=== PATIENT | male | born 1955 | race Caucasian/White ===

== ENCOUNTER 2018-01-01 16:37 | Observation (INO) ==
--- NOTE | 2018-01-01 16:49 | Emergency Department Note ---
Disposition Clinical Impression: Cough, COPD exacerbation, UTI (urinary tract infection) Fever Qualifiers: Fever type: unspecified Qualified Code(s): R50.9 - Fever, unspecified Disposition: Admitted As Inpatient Condition: Fair Time of Disposition: 18:51 Fever HPI - General Stated Complaint: Fever Time Seen by Provider: 01/01/18 16:39 Source: patient Mode of arrival: ambulatory Limitations: no limitations Nursing Notes Reviewed: Yes Vital Signs Reviewed: Yes - History of Present Illness HPI Narrative: Patient presents to the ED with the chief complaint of fever. Patient presenting to the ED after being evaluated here yesterday. Was told that he had bronchitis and was sent home. Family states that he has not gotten better in the last 24 hours with antibiotics. States it is had fevers today. They do not have a thermometer, but she states that it has been around 101. Because his ears are not red. He has been coughing intermittently productive. Denying chest pain or shortness of breath. States that he does pull hot and sweaty. No abdominal pain. Some nausea but no vomiting. No dysuria, hematuria , or diarrhea. No pain or swelling in his legs. No history of DVT, PE or malignancy. No history of coronary artery disease. Does have a history of hypertension, hyperlipidemia. - Related Data Home Medications Medication Instructions Recorded Confirmed Atorvastatin Calcium [Lipitor] 80 mg PO HS 01/01/18 01/01/18 Gabapentin [Neurontin] 600 mg PO QID 01/01/18 01/01/18 Glimepiride [Amaryl] 4 mg PO DAILY 01/01/18 01/01/18 Losartan [Cozaar] 25 mg PO DAILY 01/01/18 01/01/18 Metformin HCl [Glucophage] 1,000 mg PO BID 01/01/18 01/01/18 Previous Rx's Medication Instructions Recorded Albuterol Sulfate [Albuterol 2 puff IH Q4HR PRN #1 hfa.aer.ad 12/31/17 Inhaler] Azithromycin [Azithromycin 6-Tab 250 mg PO PER PKG DI #6 tab 12/31/17 Pack] Cyclobenzaprine [Flexeril] 10 mg PO TID #15 tablet 12/31/17 Allergies Allergy/AdvReac Type Severity Reaction Status Date / Time No Known Allergies Allergy Verified 01/01/18 21:49 Review of Systems: As reviewed in the HPI. All other systems reviewed are negative or normal. Fever PMH - Past Medical History Medical history: Reports: diabetes, hyperlipidemia Psychiatric history: Reports: no psych history - Social History Smoking Status: Former smoker Alcohol use: Reports: occasionally, recent Drug use: Reports: none Physical Exam CONSTITUTIONAL: [well appearing in no acute distress] SKIN: [Warm, diaphoretic, and intact without rash] EYES: [extraocular movements are grossly intact, clear conjunctiva] HENT: [Normocephalic, atraumatic, moist mucus membranes] NECK: [no obvious swelling, normal range of motion] PULMONARY: [normal chest rise and fall, no respiratory distress or stridor CARDIOVASCULAR: [regular rate, distal extremities are warm and well perfused] GASTROINSTESTINAL: [nondistended, non-tender] GENITOURINARY: [deferred] NEUROLOGIC: [normal speech, moves all extremities] MUSCULOSKELETAL: [no gross deformities, atraumatic] PSYCHIATRIC: [normal mood and affect] - General Limitations: no limitations General appearance: alert, in no apparent distress Course Course Narrative: Patient presenting with cough and mild shortness of breath. Has been ongoing for a little less than a week. His sats were 88% on room air, and he denies any history of COPD. He does have some coarse breath sounds but no wheezing, rales or rhonchi. Concern for PE. We will add on a d-dimer to his workup. - Reevaluation(s) Reevaluation #1: D-dimer was elevated. CTA of the chest ordered. Patient will be signed out to the oncoming nighttime team with Dr. Moe Vital Signs Temperature 100.1 F H 01/01/18 16:40 Pulse Rate 97 01/01/18 16:40 Respiratory Rate 18 01/01/18 16:40 Blood Pressure 120/58 01/01/18 16:40 O2 Sat by Pulse Oximetry 88 01/01/18 16:40 Temperature 97.8 F 01/02/18 07:23 Pulse Rate 70 01/02/18 07:23 Respiratory Rate 20 01/02/18 07:23 Blood Pressure 116/58 01/02/18 07:23 O2 Sat by Pulse Oximetry 92 01/02/18 07:23 Oxygen Delivery Oxygen Delivery Room Air Fever - Medical Records Medical records reviewed: Yes I reviewed the patient's medical records. - Lab Data Lab results reviewed: Yes I reviewed the patient's lab results. Result diagrams: 01/02/18 04:30 01/02/18 04:30 Lab Results 01/01/18 01/01/18 01/01/18 Range/Units 16:43 16:43 16:45 WBC 10.2 (4.3-11.1) K/mcL RBC 3.79 L (4.19-5.50) M/mcL Hgb 12.1 L (12.9-16.9) g/dL Hct 34.6 L (37.5-50.1) % MCV 91.3 (83.0-100.0) fL MCH 31.9 (28.0-33.3) pg MCHC 35.0 (31.6-35.5) g/dL RDW 13.3 (11.5-14.5) % Plt Count 142 (140-400) K/mcL MPV 10.6 (9.4-12.4) fL Immature Gran % 0.3 (0-4) % Seg Neutrophils % 41.0 % Lymphocytes % 44.6 % Monocytes % 13.2 % Eosinophils % 0.3 % Basophils % 0.6 % Neutrophils # 4.2 (1.6-8.9) K/mcL Lymphocytes # 4.6 (0.6-4.6) K/mcL Monocytes # 1.4 H (0.0-1.3) K/mcL Eosinophils # 0.0 (0.0-0.6) K/mcL Basophils # 0.1 (0.0-0.2) K/mcL Reactive Lymphocytes Present A (Not Present) Platelet Estimate Normal (Normal) D-Dimer 3908 H (0-500) ng/mLFEU Sodium 135 L (136-145) mEq/L Potassium 3.2 L (3.5-5.1) mEq/L Chloride 99 (98-107) mEq/L Carbon Dioxide 28 (23-29) mEq/L BUN 12 (8-23) mg/dL Creatinine 0.76 (0.70-1.30) mg/dL Est GFR ( Amer) > 60 (> 60) Est GFR (Non-Af Amer) > 60 (> 60) BUN/Creatinine Ratio 16 (6-26) Glucose 53 L (70-105) mg/dL POC Glucose (70-99) mg/dL Calculated Osmolality 277 L (280-300) Lactic Acid (0.5-2.2) mmol/L Calcium 9.4 (8.6-10.3) mg/dL Magnesium 1.8 (1.6-2.6) mg/dL Troponin I < 0.03 (< 0.04) ng/mL Urine Color (Yellow) Urine Clarity (Clear) Urine pH (5.0-8.0) pH Units Ur Specific [place] (1.010-1.025) Urine Protein (Neg-Trace) mg/dL Urine Glucose (UA) (Normal) mg/dL Urine Ketones (Negative) mg/dL Urine Blood (Negative) Urine Nitrite (Negative) Urine Bilirubin (Negative) Urine Urobilinogen (Normal) mg/dL Ur Leukocyte Esterase (Negative) Urine Microscopic RBC (0-3) per hpf Urine Microscopic WBC (0-3) per hpf Ur Squamous Epith Cells (None-Few) per lpf Urine Bacteria (None-Few) per hpf Hyaline Casts (None-Few) per lpf Ur Culture Indicated? (NO) 01/01/18 01/01/18 01/01/18 Range/Units 17:03 17:35 20:22 WBC (4.3-11.1) K/mcL RBC (4.19-5.50) M/mcL Hgb (12.9-16.9) g/dL Hct (37.5-50.1) % MCV (83.0-100.0) fL MCH (28.0-33.3) pg MCHC (31.6-35.5) g/dL RDW (11.5-14.5) % Plt Count (140-400) K/mcL MPV (9.4-12.4) fL Immature Gran % (0-4) % Seg Neutrophils % % Lymphocytes % % Monocytes % % Eosinophils % % Basophils % % Neutrophils # (1.6-8.9) K/mcL Lymphocytes # (0.6-4.6) K/mcL Monocytes # (0.0-1.3) K/mcL Eosinophils # (0.0-0.6) K/mcL Basophils # (0.0-0.2) K/mcL Reactive Lymphocytes (Not Present) Platelet Estimate (Normal) D-Dimer (0-500) ng/mLFEU Sodium (136-145) mEq/L Potassium (3.5-5.1) mEq/L Chloride (98-107) mEq/L Carbon Dioxide (23-29) mEq/L BUN (8-23) mg/dL Creatinine (0.70-1.30) mg/dL Est GFR ( Amer) (> 60) Est GFR (Non-Af Amer) (> 60) BUN/Creatinine Ratio (6-26) Glucose (70-105) mg/dL POC Glucose 56 L (70-99) mg/dL Calculated Osmolality (280-300) Lactic Acid 1.4 (0.5-2.2) mmol/L Calcium (8.6-10.3) mg/dL Magnesium (1.6-2.6) mg/dL Troponin I (< 0.04) ng/mL Urine Color [place] A (Yellow) Urine Clarity Cloudy A (Clear) Urine pH 5.5 (5.0-8.0) pH Units Ur Specific [place] > 1.030 H (1.010-1.025) Urine Protein 100 H (Neg-Trace) mg/dL Urine Glucose (UA) Normal (Normal) mg/dL Urine Ketones Trace H (Negative) mg/dL Urine Blood Small H (Negative) Urine Nitrite Negative (Negative) Urine Bilirubin Small H (Negative) Urine Urobilinogen 4.0 H (Normal) mg/dL Ur Leukocyte Esterase Trace H (Negative) Urine Microscopic RBC 0-3 (0-3) per hpf Urine Microscopic WBC 5-15 H (0-3) per hpf Ur Squamous Epith Cells Many H (None-Few) per lpf Urine Bacteria None Seen (None-Few) per hpf Hyaline Casts Few (None-Few) per lpf Ur Culture Indicated? NO. A (NO) 01/01/18 Range/Units 21:17 WBC (4.3-11.1) K/mcL RBC (4.19-5.50) M/mcL Hgb (12.9-16.9) g/dL Hct (37.5-50.1) % MCV (83.0-100.0) fL MCH (28.0-33.3) pg MCHC (31.6-35.5) g/dL RDW (11.5-14.5) % Plt Count (140-400) K/mcL MPV (9.4-12.4) fL Immature Gran % (0-4) % Seg Neutrophils % % Lymphocytes % % Monocytes % % Eosinophils % % Basophils % % Neutrophils # (1.6-8.9) K/mcL Lymphocytes # (0.6-4.6) K/mcL Monocytes # (0.0-1.3) K/mcL Eosinophils # (0.0-0.6) K/mcL Basophils # (0.0-0.2) K/mcL Reactive Lymphocytes (Not Present) Platelet Estimate (Normal) D-Dimer (0-500) ng/mLFEU Sodium (136-145) mEq/L Potassium (3.5-5.1) mEq/L Chloride (98-107) mEq/L Carbon Dioxide (23-29) mEq/L BUN (8-23) mg/dL Creatinine (0.70-1.30) mg/dL Est GFR ( Amer) (> 60) Est GFR (Non-Af Amer) (> 60) BUN/Creatinine Ratio (6-26) Glucose (70-105) mg/dL POC Glucose 101 H (70-99) mg/dL Calculated Osmolality (280-300) Lactic Acid (0.5-2.2) mmol/L Calcium (8.6-10.3) mg/dL Magnesium (1.6-2.6) mg/dL Troponin I (< 0.04) ng/mL Urine Color (Yellow) Urine Clarity (Clear) Urine pH (5.0-8.0) pH Units Ur Specific [place] (1.010-1.025) Urine Protein (Neg-Trace) mg/dL Urine Glucose (UA) (Normal) mg/dL Urine Ketones (Negative) mg/dL Urine Blood (Negative) Urine Nitrite (Negative) Urine Bilirubin (Negative) Urine Urobilinogen (Normal) mg/dL Ur Leukocyte Esterase (Negative) Urine Microscopic RBC (0-3) per hpf Urine Microscopic WBC (0-3) per hpf Ur Squamous Epith Cells (None-Few) per lpf Urine Bacteria (None-Few) per hpf Hyaline Casts (None-Few) per lpf Ur Culture Indicated? (NO) - Radiology Data Radiology results reviewed: Yes I reviewed the patient's radiology results. - EKG Data EKG attestation: Yes I reviewed and interpreted this EKG. EKG results narrative: Sinus rhythm, rate 93,. 135, QRS 150, QTC 429, left bundle branch block, no previous available Attestation Statement - Attestation Attestation: I examined this patient and my medical decision-making was reviewed with the Resident Physician. I agree with the documented findings, disposition and treatment plan as described except to the extent set forth below.
[2018-01-01] MEDS: 0.9 % Sodium Chloride 1,000 ML IVC SCH ×3 (17:04→23:07)
[2018-01-01 17:16] LABS: Basophils # 0.1 K/mcL (0.0-0.2); Basophils % 0.6 %; Eosinophils % 0.3 %; Hematocrit 34.6 % (37.5-50.1); Hemoglobin 12.1 g/dL (12.9-16.9); Immature Granulocytes % 0.3 % (0-4); Lymphocytes # 4.6 K/mcL (0.6-4.6); Lymphocytes % 44.6 %; Mean Corpuscular Hemoglobin 31.9 pg (28.0-33.3); Mean Corpuscular Volume 91.3 fL (83.0-100.0); Mean Platelet Volume 10.6 fL (9.4-12.4); Monocytes # 1.4 K/mcL (0.0-1.3); Monocytes % 13.2 %; Neutrophils # 4.2 K/mcL (1.6-8.9); Platelet Count 142 K/mcL (140-400); Red Blood Count 3.79 M/mcL (4.19-5.50); Red Cell Distribution Width 13.3 % (11.5-14.5)
[2018-01-01 17:35] LABS: Platelet Estimate Normal (Normal); Reactive Lymphocytes Present (Not Present)
[2018-01-01 17:36] LABS: BUN/Creatinine Ratio 16 (6-26); Blood Urea Nitrogen 12 mg/dL (8-23); Calcium 9.4 mg/dL (8.6-10.3); Carbon Dioxide 28 mEq/L (23-29); Chloride 99 mEq/L (98-107); Glucose 53 mg/dL (70-105); Magnesium 1.8 mg/dL (1.6-2.6); Osmolality,Calculated 277 (280-300); Potassium 3.2 mEq/L (3.5-5.1); Sodium 135 mEq/L (136-145); Troponin I < 0.03 ng/mL (< 0.04); eGFR For African Americans > 60 (> 60); eGFR For Non-African Americans > 60 (> 60)
[2018-01-01 17:47] LABS: Bilirubin,Urine Small (Negative); Blood,Urine Small (Negative); Clarity,Urine Cloudy (Clear); Color,Urine Orange (Yellow); Glucose,Urine (UA) Normal (Normal); Ketones,Urine Trace mg/dL (Negative); Leukocyte Esterase,Urine Trace (Negative); Nitrite,Urine Negative (Negative); PH,Urine 5.5 pH Units (5.0-8.0); Protein,Urine 100 mg/dL (Neg-Trace); Specific Gravity,Urine > 1.030 (1.010-1.025)
[2018-01-01 17:49] LABS: Bacteria,Urine None Seen per hpf (None-Few); RBC,Urine 0-3 per hpf (0-3); Squamous Epithelial Cell,Urine Many per lpf (None-Few)
[2018-01-01 18:01] LABS: Hyaline Casts,Urine Few per lpf (None-Few)
[2018-01-01] MEDS ORDERED: Isovue-370 500 ML INFUS..BTL IV ONE (18:47)
[2018-01-01] MEDS ORDERED: Ipratropium/Albuterol Neb 3 ML IH ONE (18:51)
--- NOTE | 2018-01-01 18:51 | Emergency Department Note ---
Disposition Clinical Impression: Cough, COPD exacerbation Fever Qualifiers: Fever type: unspecified Qualified Code(s): R50.9 - Fever, unspecified UTI (urinary tract infection) Qualifiers: Urinary tract infection type: site unspecified Hematuria presence: without hematuria Qualified Code(s): N39.0 - Urinary tract infection, site not specified Disposition: Admitted As Inpatient Condition: Good General Adult HPI - General Chief complaint: ED Fever Stated complaint: Fever Time Seen by Provider: 01/01/18 16:39 Source: patient Mode of arrival: ambulatory Limitations: no limitations - History of Present Illness Pain Scale: 8 - Related Data Home Medications Medication Instructions Recorded Confirmed Atorvastatin Calcium [Lipitor] 80 mg PO HS 01/01/18 01/01/18 Gabapentin [Neurontin] 1,200 mg PO TID 01/01/18 01/02/18 Glimepiride [Amaryl] 4 mg PO DAILY 01/01/18 01/01/18 Losartan [Cozaar] 25 mg PO DAILY 01/01/18 01/01/18 Metformin HCl [Glucophage] 1,000 mg PO BID 01/01/18 01/01/18 Previous Rx's Medication Instructions Recorded Albuterol Sulfate [Albuterol 2 puff IH Q4HR PRN #1 hfa.aer.ad 01/02/18 Inhaler] Benzocaine/Menthol Janeth [Cepacol 1 each MM Q2H PRN #30 lozenge 01/02/18 Sore Throat Lozenge] Cyclobenzaprine [Flexeril] 10 mg PO TID #15 tablet 01/02/18 Doxycycline 100 mg PO BID 10 Days #20 capsule 01/02/18 GuaiFENesin/Dextromethorphan 10 ml PO Q6HR PRN #500 ml 01/02/18 [Robitussin/Dm] Allergies Allergy/AdvReac Type Severity Reaction Status Date / Time No Known Allergies Allergy Verified 01/01/18 21:49 Past Medical History - Past Medical History Medical history: Reports: diabetes, hyperlipidemia Psychiatric history: Reports: no psych history - Social History Smoking Status: Former smoker Smokeless Tobacco Status: No Alcohol use: Reports: occasionally, recent Drug use: Reports: none Physical Exam - General Limitations: no limitations General appearance: alert, in no apparent distress Course Vital Signs Temperature 100.1 F H 01/01/18 16:40 Pulse Rate 97 01/01/18 16:40 Respiratory Rate 18 01/01/18 16:40 Blood Pressure 120/58 01/01/18 16:40 O2 Sat by Pulse Oximetry 88 01/01/18 16:40 Temperature 97.8 F 01/02/18 07:23 Pulse Rate 70 01/02/18 07:23 Respiratory Rate 20 01/02/18 07:23 Blood Pressure 116/58 01/02/18 07:23 O2 Sat by Pulse Oximetry 92 01/02/18 07:23 Oxygen Delivery Oxygen Delivery Room Air Medical Decision Making - Lab Data Result diagrams: 01/02/18 04:30 01/02/18 04:30 Lab Results 01/01/18 01/01/18 01/01/18 Range/Units 16:43 16:43 16:45 WBC 10.2 (4.3-11.1) K/mcL RBC 3.79 L (4.19-5.50) M/mcL Hgb 12.1 L (12.9-16.9) g/dL Hct 34.6 L (37.5-50.1) % MCV 91.3 (83.0-100.0) fL MCH 31.9 (28.0-33.3) pg MCHC 35.0 (31.6-35.5) g/dL RDW 13.3 (11.5-14.5) % Plt Count 142 (140-400) K/mcL MPV 10.6 (9.4-12.4) fL Immature Gran % 0.3 (0-4) % Seg Neutrophils % 41.0 % Lymphocytes % 44.6 % Monocytes % 13.2 % Eosinophils % 0.3 % Basophils % 0.6 % Neutrophils # 4.2 (1.6-8.9) K/mcL Lymphocytes # 4.6 (0.6-4.6) K/mcL Monocytes # 1.4 H (0.0-1.3) K/mcL Eosinophils # 0.0 (0.0-0.6) K/mcL Basophils # 0.1 (0.0-0.2) K/mcL Reactive Lymphocytes Present A (Not Present) Platelet Estimate Normal (Normal) D-Dimer 3908 H (0-500) ng/mLFEU Sodium 135 L (136-145) mEq/L Potassium 3.2 L (3.5-5.1) mEq/L Chloride 99 (98-107) mEq/L Carbon Dioxide 28 (23-29) mEq/L BUN 12 (8-23) mg/dL Creatinine 0.76 (0.70-1.30) mg/dL Est GFR ( Amer) > 60 (> 60) Est GFR (Non-Af Amer) > 60 (> 60) BUN/Creatinine Ratio 16 (6-26) Glucose 53 L (70-105) mg/dL POC Glucose (70-99) mg/dL Calculated Osmolality 277 L (280-300) Lactic Acid (0.5-2.2) mmol/L Calcium 9.4 (8.6-10.3) mg/dL Magnesium 1.8 (1.6-2.6) mg/dL Troponin I < 0.03 (< 0.04) ng/mL Urine Color (Yellow) Urine Clarity (Clear) Urine pH (5.0-8.0) pH Units Ur Specific [place] (1.010-1.025) Urine Protein (Neg-Trace) mg/dL Urine Glucose (UA) (Normal) mg/dL Urine Ketones (Negative) mg/dL Urine Blood (Negative) Urine Nitrite (Negative) Urine Bilirubin (Negative) Urine Urobilinogen (Normal) mg/dL Ur Leukocyte Esterase (Negative) Urine Microscopic RBC (0-3) per hpf Urine Microscopic WBC (0-3) per hpf Ur Squamous Epith Cells (None-Few) per lpf Urine Bacteria (None-Few) per hpf Hyaline Casts (None-Few) per lpf Ur Culture Indicated? (NO) 01/01/18 01/01/18 01/01/18 Range/Units 17:03 17:35 20:22 WBC (4.3-11.1) K/mcL RBC (4.19-5.50) M/mcL Hgb (12.9-16.9) g/dL Hct (37.5-50.1) % MCV (83.0-100.0) fL MCH (28.0-33.3) pg MCHC (31.6-35.5) g/dL RDW (11.5-14.5) % Plt Count (140-400) K/mcL MPV (9.4-12.4) fL Immature Gran % (0-4) % Seg Neutrophils % % Lymphocytes % % Monocytes % % Eosinophils % % Basophils % % Neutrophils # (1.6-8.9) K/mcL Lymphocytes # (0.6-4.6) K/mcL Monocytes # (0.0-1.3) K/mcL Eosinophils # (0.0-0.6) K/mcL Basophils # (0.0-0.2) K/mcL Reactive Lymphocytes (Not Present) Platelet Estimate (Normal) D-Dimer (0-500) ng/mLFEU Sodium (136-145) mEq/L Potassium (3.5-5.1) mEq/L Chloride (98-107) mEq/L Carbon Dioxide (23-29) mEq/L BUN (8-23) mg/dL Creatinine (0.70-1.30) mg/dL Est GFR ( Amer) (> 60) Est GFR (Non-Af Amer) (> 60) BUN/Creatinine Ratio (6-26) Glucose (70-105) mg/dL POC Glucose 56 L (70-99) mg/dL Calculated Osmolality (280-300) Lactic Acid 1.4 (0.5-2.2) mmol/L Calcium (8.6-10.3) mg/dL Magnesium (1.6-2.6) mg/dL Troponin I (< 0.04) ng/mL Urine Color [place] A (Yellow) Urine Clarity Cloudy A (Clear) Urine pH 5.5 (5.0-8.0) pH Units Ur Specific [place] > 1.030 H (1.010-1.025) Urine Protein 100 H (Neg-Trace) mg/dL Urine Glucose (UA) Normal (Normal) mg/dL Urine Ketones Trace H (Negative) mg/dL Urine Blood Small H (Negative) Urine Nitrite Negative (Negative) Urine Bilirubin Small H (Negative) Urine Urobilinogen 4.0 H (Normal) mg/dL Ur Leukocyte Esterase Trace H (Negative) Urine Microscopic RBC 0-3 (0-3) per hpf Urine Microscopic WBC 5-15 H (0-3) per hpf Ur Squamous Epith Cells Many H (None-Few) per lpf Urine Bacteria None Seen (None-Few) per hpf Hyaline Casts Few (None-Few) per lpf Ur Culture Indicated? NO. A (NO) 01/01/18 Range/Units 21:17 WBC (4.3-11.1) K/mcL RBC (4.19-5.50) M/mcL Hgb (12.9-16.9) g/dL Hct (37.5-50.1) % MCV (83.0-100.0) fL MCH (28.0-33.3) pg MCHC (31.6-35.5) g/dL RDW (11.5-14.5) % Plt Count (140-400) K/mcL MPV (9.4-12.4) fL Immature Gran % (0-4) % Seg Neutrophils % % Lymphocytes % % Monocytes % % Eosinophils % % Basophils % % Neutrophils # (1.6-8.9) K/mcL Lymphocytes # (0.6-4.6) K/mcL Monocytes # (0.0-1.3) K/mcL Eosinophils # (0.0-0.6) K/mcL Basophils # (0.0-0.2) K/mcL Reactive Lymphocytes (Not Present) Platelet Estimate (Normal) D-Dimer (0-500) ng/mLFEU Sodium (136-145) mEq/L Potassium (3.5-5.1) mEq/L Chloride (98-107) mEq/L Carbon Dioxide (23-29) mEq/L BUN (8-23) mg/dL Creatinine (0.70-1.30) mg/dL Est GFR ( Amer) (> 60) Est GFR (Non-Af Amer) (> 60) BUN/Creatinine Ratio (6-26) Glucose (70-105) mg/dL POC Glucose 101 H (70-99) mg/dL Calculated Osmolality (280-300) Lactic Acid (0.5-2.2) mmol/L Calcium (8.6-10.3) mg/dL Magnesium (1.6-2.6) mg/dL Troponin I (< 0.04) ng/mL Urine Color (Yellow) Urine Clarity (Clear) Urine pH (5.0-8.0) pH Units Ur Specific [place] (1.010-1.025) Urine Protein (Neg-Trace) mg/dL Urine Glucose (UA) (Normal) mg/dL Urine Ketones (Negative) mg/dL Urine Blood (Negative) Urine Nitrite (Negative) Urine Bilirubin (Negative) Urine Urobilinogen (Normal) mg/dL Ur Leukocyte Esterase (Negative) Urine Microscopic RBC (0-3) per hpf Urine Microscopic WBC (0-3) per hpf Ur Squamous Epith Cells (None-Few) per lpf Urine Bacteria (None-Few) per hpf Hyaline Casts (None-Few) per lpf Ur Culture Indicated? (NO) Attestation Statement - Attestation Attestation: I examined this patient and my medical decision-making was reviewed with the Resident Physician. I agree with the documented findings, disposition and treatment plan as described except to the extent set forth below. 62-year-old male presents ED because of cough, dyspnea and fever. He has had symptoms for the past several days associated with subjective fever. No specific measurements were taken. He has had increasing dyspnea. He was seen here in the emergency department and diagnosed with bronchitis. He returns today because he is not feeling any better. He has had episodes of diaphoresis. Cough is nonproductive but he does have post-tussive emesis. No chest pain but does have pain in his upper scapula. Denies abdominal pain or diarrhea. No joint pain. No leg edema. No recent long distance travel or periods of prolonged immobilization. Patient is little bit pale and diaphoretic. Oropharynx clear mucous membranes membranes moist. Neck supple. No JVD. Chest with scattered respiratory rhonchi bilaterally. Mild expiratory wheezes. Abdomen soft, non-distended and non-tender. Extremities warm and dry. No calf edema. No calf tenderness. Chest x-ray negative for any acute process. He was hypoxic with a rash oxygen saturation of 80% and a d-dimer of 3800. He will receive a DuoNeb treatment and will be sent for CT of his chest to rule out PE. Will be turned over to Dr. Urias pending results of the CT.
[2018-01-01] MEDS ORDERED: 0.9 % Sodium Chloride 1,000 ML ONE (19:26)
--- NOTE | 2018-01-01 19:27 | Emergency Department Note ---
Disposition Clinical Impression: Cough, COPD exacerbation Fever Qualifiers: Fever type: unspecified Qualified Code(s): R50.9 - Fever, unspecified UTI (urinary tract infection) Qualifiers: Urinary tract infection type: site unspecified Hematuria presence: without hematuria Qualified Code(s): N39.0 - Urinary tract infection, site not specified Disposition: Admitted As Inpatient Condition: Fair General Adult HPI - General Chief complaint: ED Fever Stated complaint: Fever Time Seen by Provider: 01/01/18 16:39 Source: patient Mode of arrival: ambulatory Limitations: no limitations - History of Present Illness Pain Scale: 8 - Related Data Home Medications Medication Instructions Recorded Confirmed Atorvastatin Calcium [Lipitor] 80 mg PO HS 01/01/18 01/01/18 Gabapentin [Neurontin] 600 mg PO QID 01/01/18 01/01/18 Glimepiride [Amaryl] 4 mg PO DAILY 01/01/18 01/01/18 Losartan [Cozaar] 25 mg PO DAILY 01/01/18 01/01/18 Metformin HCl [Glucophage] 1,000 mg PO BID 01/01/18 01/01/18 Previous Rx's Medication Instructions Recorded Albuterol Sulfate [Albuterol 2 puff IH Q4HR PRN #1 hfa.aer.ad 12/31/17 Inhaler] Azithromycin [Azithromycin 6-Tab 250 mg PO PER PKG DI #6 tab 12/31/17 Pack] Cyclobenzaprine [Flexeril] 10 mg PO TID #15 tablet 12/31/17 Allergies Allergy/AdvReac Type Severity Reaction Status Date / Time No Known Allergies Allergy Verified 01/01/18 21:49 Past Medical History - Past Medical History Medical history: Reports: diabetes, hyperlipidemia Psychiatric history: Reports: no psych history - Social History Smoking Status: Former smoker Smokeless Tobacco Status: No Alcohol use: Reports: occasionally, recent Drug use: Reports: none Physical Exam - General Limitations: no limitations General appearance: alert, in no apparent distress Course Course Narrative: Patient taken over at sign out from Dr. Gaona. Patient seen and evaluated bedside. Please see his history and physical for further details. Shortness of breath evaluated last week and did not improve with antibiotics. Resents hypoxic at 88%. D-dimer elevated. CTA pending. - Reevaluation(s) Reevaluation #1: Patient states he has had some mild improvement in the department. Treatment did improve some of his symptoms. CTA and chest x-ray are negative. The patient was recently seen for URI type symptoms with sore throat. Strep swab and influenza were negative. Patient does have some tonsillar exudates bilaterally. The patient wheezing and shortness of breath or right likely related to underlying reactive airway disease. Patient's urine is concerning for possible UTI which may be complicating's overlying viral syndrome. Levaquin has been given. Awaiting urine culture. Blood cultures have also been obtained. Patient's potassium has been replaced. Patient will undergo further admission for observation and pending cultures. - Consultations Consultation #1: Discussed with hospitalist. Patient accepted for admission. Vital Signs Temperature 100.1 F H 01/01/18 16:40 Pulse Rate 97 01/01/18 16:40 Respiratory Rate 18 01/01/18 16:40 Blood Pressure 120/58 01/01/18 16:40 O2 Sat by Pulse Oximetry 88 01/01/18 16:40 Temperature 97.9 F 01/02/18 04:08 Pulse Rate 75 01/02/18 04:08 Respiratory Rate 16 01/02/18 04:08 Blood Pressure 127/64 01/02/18 04:08 O2 Sat by Pulse Oximetry 96 01/02/18 04:08 Oxygen Delivery Oxygen Delivery Room Air Medical Decision Making - Lab Data Result diagrams: 01/01/18 16:43 01/01/18 16:43 Lab Results 01/01/18 01/01/18 01/01/18 Range/Units 16:43 16:43 16:45 WBC 10.2 (4.3-11.1) K/mcL RBC 3.79 L (4.19-5.50) M/mcL Hgb 12.1 L (12.9-16.9) g/dL Hct 34.6 L (37.5-50.1) % MCV 91.3 (83.0-100.0) fL MCH 31.9 (28.0-33.3) pg MCHC 35.0 (31.6-35.5) g/dL RDW 13.3 (11.5-14.5) % Plt Count 142 (140-400) K/mcL MPV 10.6 (9.4-12.4) fL Immature Gran % 0.3 (0-4) % Seg Neutrophils % 41.0 % Lymphocytes % 44.6 % Monocytes % 13.2 % Eosinophils % 0.3 % Basophils % 0.6 % Neutrophils # 4.2 (1.6-8.9) K/mcL Lymphocytes # 4.6 (0.6-4.6) K/mcL Monocytes # 1.4 H (0.0-1.3) K/mcL Eosinophils # 0.0 (0.0-0.6) K/mcL Basophils # 0.1 (0.0-0.2) K/mcL Reactive Lymphocytes Present A (Not Present) Platelet Estimate Normal (Normal) D-Dimer 3908 H (0-500) ng/mLFEU Sodium 135 L (136-145) mEq/L Potassium 3.2 L (3.5-5.1) mEq/L Chloride 99 (98-107) mEq/L Carbon Dioxide 28 (23-29) mEq/L BUN 12 (8-23) mg/dL Creatinine 0.76 (0.70-1.30) mg/dL Est GFR ( Amer) > 60 (> 60) Est GFR (Non-Af Amer) > 60 (> 60) BUN/Creatinine Ratio 16 (6-26) Glucose 53 L (70-105) mg/dL POC Glucose (70-99) mg/dL Calculated Osmolality 277 L (280-300) Lactic Acid (0.5-2.2) mmol/L Calcium 9.4 (8.6-10.3) mg/dL Magnesium 1.8 (1.6-2.6) mg/dL Troponin I < 0.03 (< 0.04) ng/mL Urine Color (Yellow) Urine Clarity (Clear) Urine pH (5.0-8.0) pH Units Ur Specific [place] (1.010-1.025) Urine Protein (Neg-Trace) mg/dL Urine Glucose (UA) (Normal) mg/dL Urine Ketones (Negative) mg/dL Urine Blood (Negative) Urine Nitrite (Negative) Urine Bilirubin (Negative) Urine Urobilinogen (Normal) mg/dL Ur Leukocyte Esterase (Negative) Urine Microscopic RBC (0-3) per hpf Urine Microscopic WBC (0-3) per hpf Ur Squamous Epith Cells (None-Few) per lpf Urine Bacteria (None-Few) per hpf Hyaline Casts (None-Few) per lpf Ur Culture Indicated? (NO) 01/01/18 01/01/18 01/01/18 Range/Units 17:03 17:35 20:22 WBC (4.3-11.1) K/mcL RBC (4.19-5.50) M/mcL Hgb (12.9-16.9) g/dL Hct (37.5-50.1) % MCV (83.0-100.0) fL MCH (28.0-33.3) pg MCHC (31.6-35.5) g/dL RDW (11.5-14.5) % Plt Count (140-400) K/mcL MPV (9.4-12.4) fL Immature Gran % (0-4) % Seg Neutrophils % % Lymphocytes % % Monocytes % % Eosinophils % % Basophils % % Neutrophils # (1.6-8.9) K/mcL Lymphocytes # (0.6-4.6) K/mcL Monocytes # (0.0-1.3) K/mcL Eosinophils # (0.0-0.6) K/mcL Basophils # (0.0-0.2) K/mcL Reactive Lymphocytes (Not Present) Platelet Estimate (Normal) D-Dimer (0-500) ng/mLFEU Sodium (136-145) mEq/L Potassium (3.5-5.1) mEq/L Chloride (98-107) mEq/L Carbon Dioxide (23-29) mEq/L BUN (8-23) mg/dL Creatinine (0.70-1.30) mg/dL Est GFR ( Amer) (> 60) Est GFR (Non-Af Amer) (> 60) BUN/Creatinine Ratio (6-26) Glucose (70-105) mg/dL POC Glucose 56 L (70-99) mg/dL Calculated Osmolality (280-300) Lactic Acid 1.4 (0.5-2.2) mmol/L Calcium (8.6-10.3) mg/dL Magnesium (1.6-2.6) mg/dL Troponin I (< 0.04) ng/mL Urine Color [place] A (Yellow) Urine Clarity Cloudy A (Clear) Urine pH 5.5 (5.0-8.0) pH Units Ur Specific [place] > 1.030 H (1.010-1.025) Urine Protein 100 H (Neg-Trace) mg/dL Urine Glucose (UA) Normal (Normal) mg/dL Urine Ketones Trace H (Negative) mg/dL Urine Blood Small H (Negative) Urine Nitrite Negative (Negative) Urine Bilirubin Small H (Negative) Urine Urobilinogen 4.0 H (Normal) mg/dL Ur Leukocyte Esterase Trace H (Negative) Urine Microscopic RBC 0-3 (0-3) per hpf Urine Microscopic WBC 5-15 H (0-3) per hpf Ur Squamous Epith Cells Many H (None-Few) per lpf Urine Bacteria None Seen (None-Few) per hpf Hyaline Casts Few (None-Few) per lpf Ur Culture Indicated? NO. A (NO) 01/01/18 Range/Units 21:17 WBC (4.3-11.1) K/mcL RBC (4.19-5.50) M/mcL Hgb (12.9-16.9) g/dL Hct (37.5-50.1) % MCV (83.0-100.0) fL MCH (28.0-33.3) pg MCHC (31.6-35.5) g/dL RDW (11.5-14.5) % Plt Count (140-400) K/mcL MPV (9.4-12.4) fL Immature Gran % (0-4) % Seg Neutrophils % % Lymphocytes % % Monocytes % % Eosinophils % % Basophils % % Neutrophils # (1.6-8.9) K/mcL Lymphocytes # (0.6-4.6) K/mcL Monocytes # (0.0-1.3) K/mcL Eosinophils # (0.0-0.6) K/mcL Basophils # (0.0-0.2) K/mcL Reactive Lymphocytes (Not Present) Platelet Estimate (Normal) D-Dimer (0-500) ng/mLFEU Sodium (136-145) mEq/L Potassium (3.5-5.1) mEq/L Chloride (98-107) mEq/L Carbon Dioxide (23-29) mEq/L BUN (8-23) mg/dL Creatinine (0.70-1.30) mg/dL Est GFR ( Amer) (> 60) Est GFR (Non-Af Amer) (> 60) BUN/Creatinine Ratio (6-26) Glucose (70-105) mg/dL POC Glucose 101 H (70-99) mg/dL Calculated Osmolality (280-300) Lactic Acid (0.5-2.2) mmol/L Calcium (8.6-10.3) mg/dL Magnesium (1.6-2.6) mg/dL Troponin I (< 0.04) ng/mL Urine Color (Yellow) Urine Clarity (Clear) Urine pH (5.0-8.0) pH Units Ur Specific [place] (1.010-1.025) Urine Protein (Neg-Trace) mg/dL Urine Glucose (UA) (Normal) mg/dL Urine Ketones (Negative) mg/dL Urine Blood (Negative) Urine Nitrite (Negative) Urine Bilirubin (Negative) Urine Urobilinogen (Normal) mg/dL Ur Leukocyte Esterase (Negative) Urine Microscopic RBC (0-3) per hpf Urine Microscopic WBC (0-3) per hpf Ur Squamous Epith Cells (None-Few) per lpf Urine Bacteria (None-Few) per hpf Hyaline Casts (None-Few) per lpf Ur Culture Indicated? (NO) Attestation Statement - Attestation Attestation: I examined this patient and my medical decision-making was reviewed with the Resident Physician. I agree with the documented findings, disposition and treatment plan as described except to the extent set forth below. Nonspecific fever also some associated dyspnea. We will start Levaquin and obtain blood cultures. Plan to admit to the hospital for further management as patient has failed outpatient trial with Z-Dallin and continues to have fever associated with hypoglycemia.
[2018-01-01] MEDS ORDERED: Lidocaine Viscous Oral Soln 15 ML SOLUTION MM ONE (20:31)
[2018-01-01] MEDS ORDERED: methylPREDNISolone 125 MG/2 ML VIAL IVP ONE (21:29)
[2018-01-01] MEDS ORDERED: Levofloxacin 750 MG/150 ML 750 MG/150 ML BAG IVPB ONE (21:29)
[2018-01-01] MEDS ORDERED: Naloxone 0.4 MG/ML INJ IVP PRN (22:16)
[2018-01-01] MEDS ORDERED: Ipratropium/Albuterol Neb 3 ML IH PRN (22:26)
[2018-01-01] MEDS ORDERED: Acetaminophen 325 MG TABLET PO PRN (22:28)
[2018-01-01] MEDS ORDERED: Dextrose Gel 15 GM/37.5 ML TUBE PO PRN ×2 (23:05)
[2018-01-01] MEDS ORDERED: D5% in Water 1,000 ML IVC PRN (23:05)
[2018-01-01] MEDS ORDERED: *HR* Dextrose 50 % in Water (Syg) 50 ML SYRINGE IVP PRN (23:05)
--- NOTE | 2018-01-01 23:13 | Internal Med History&Physical ---
Date of Encounter: 01/01/18 Time of Encounter: 21:00 Internal Medicine - H&P: HPI Chief complaint: Fever Admitted From: Home Plans for Post Hospital Care: Home History of present illness: Mr. Lopez is a 62 year old male presented to ER for fever since 4 days ago. Past medical history is significant for diabetes. Patient said he started to have fever since last Sunday. Patient has no thermometer at home, so does not know exactly temperature. Patient has mild headache, sore throat, productive cough with clear sputum. Patient has nausea and vomited once today, no blood in the vomiting. Patient denies chest pain, shortness of breath, abdominal pain, urination symptoms. In the emergency room , patient was found decreased saturation and need oxygen. Patient does not use oxygen at home and denies history of COPD. Per ER physician, patient has trace wheezes but when I see patient in emergency room, he has no wheezes at all. Patient was checked flu test and rapid strep test on 10/31/17, both are negative. Patient was admitted for hypoxia. Per patient's , patient was found 16 ticks on body about one month ago. All ticks have been removed by his . And all the bite site is clean now. Patient was found elevated d-dimer ER. CTA is negative for PE. Past Med Surg Social Fam HX - Past Medical History Medical history: diabetes, hyperlipidemia Psychiatric history: no psych history - Social History Smoking Status: Former smoker Smokeless Tobacco Status: No Alcohol use: occasionally, recent Drug use: none - Family History Mother History Unknown: Yes Internal Medicine - H&P: Meds Albuterol Sulfate [Albuterol Inhaler] 2 puff IH Q4HR PRN #1 hfa.aer.ad 12/31/17 [Rx] Azithromycin [Azithromycin 6-Tab Pack] 250 mg PO PER PKG DI #6 tab 12/31/17 [Rx] Cyclobenzaprine [Flexeril] 10 mg PO TID #15 tablet 12/31/17 [Rx] Atorvastatin Calcium [Lipitor] 80 mg PO HS 01/01/18 [History] Gabapentin [Neurontin] 600 mg PO QID 01/01/18 [History] Glimepiride [Amaryl] 4 mg PO DAILY 01/01/18 [History] Losartan [Cozaar] 25 mg PO DAILY 01/01/18 [History] Metformin HCl [Glucophage] 1,000 mg PO BID 01/01/18 [History] 3 Allergy/AdvReac Type Severity Reaction Status Date / Time No Known Allergies Allergy Verified 01/01/18 21:49 All Systems PM: A 10-system review of systems was performed and is negative for pertinent findings except as documented above in the HPI. - Constitutional Vitals: Temp Pulse Resp BP Pulse Ox 98.1 F 82 18 123/70 92 01/01/18 22:49 01/01/18 22:49 01/01/18 22:49 01/01/18 22:49 01/01/18 22:49 General appearance: Present: mild distress, A&O X 3, answers questions appropriately - Head Head exam: Present: atraumatic, normocephalic - Eye Eye exam: Present: PERRL, conjuntiva pink, sclera anicteric Pupils: Present: PERRL - Neck Neck exam general surgery: Present: supple, trachea midline. Absent: lymphadenopathy Additional comments: Bilateral tonsil enlargement, left > right, with pus-like exudate on left tonsil. - Respiratory Respiratory exam: Present: CTAB. Absent: accessory muscle use, rales, rhonchi, wheezes Additional comments: Coarse breath sound bilaterally - Cardiovascular Cardiovascular exam: Present: RRR, +S1, +S2. Absent: diastolic murmur, gallop, rubs, systolic murmur - GI/Abdominal GI/Abdominal exam: Present: normal bowel sounds, soft, no peritoneal signs. Absent: distended, tenderness - Extremities Exam Extremities exam: Present: warm, radial pulses palpable and symmetrical. Absent : calf tenderness, cyanotic, pedal edema - Neurological Exam Neurological exam: Present: CN II-XII intact, oriented X3, no focal deficits. Absent: pronater drift, facial droop, speech deficit - Skin Skin exam: Present: dry, intact Internal Med - H&P Results - Labs CBC & Chem 7: 01/01/18 16:43 01/01/18 16:43 - Assessment and plan (1) URI (upper respiratory infection) Current Visit: Yes Status: Acute Assessment and plan: Patient has symptoms of URI with fever. Flu and rapid strep test negative. Most likely viral infection. - Continue supportive and symptomatic treatment. - Check respiratory viral panel - Patient was started by mouth azithromycin as outpatient, will continue. Qualifiers: URI type: unspecified viral URI Qualified Code(s): J06.9 - Acute upper respiratory infection, unspecified (2) Acute pharyngitis Current Visit: Yes Status: Acute Assessment and plan: Etiology is undetermined. Rapid strep negative. Probably viral infection. Patient has no signs of tonsil cellulitis/abscess. Airway is patent. - Continue symptomatic treatment - Repeat rapid strep. - Continue by mouth azithromycin Qualifiers: Pharyngitis/tonsillitis etiology: unspecified etiology Qualified Code(s): J02.9 - Acute pharyngitis, unspecified (3) Elevated d-dimer Current Visit: Yes Status: Acute Assessment and plan: CTA shows no PE. Will check bilateral Doppler venous to rule out DVT (4) Abnormal EKG Current Visit: Yes Status: Acute Assessment and plan: EKG shows LBBB, no previous EKG available to compare. Patient denies chest pain. - Continuous cardiac monitoring - Track 3 sets of troponin - Repeat EKG in a.m. (5) DVT prophylaxis Current Visit: Yes Status: Acute Assessment and plan: Heparin subcutaneously (6) Fever Current Visit: Yes Status: Acute Assessment and plan: Etiology is undetermined. Probably due to viral infection. Will continue symptomatic treatment. Follow-up urine and blood culture Qualifiers: Fever type: unspecified Qualified Code(s): R50.9 - Fever, unspecified (7) Bronchitis Current Visit: No Status: Acute Assessment and plan: Management as above. 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 Ticks was removed. No indication for prophylactic treatment at this point. Qualifiers: Encounter type: initial encounter Qualified Code(s): W57.XXXA - Bitten or stung by nonvenomous insect and other nonvenomous arthropods, initial encounter - Time Spent With Patient Total time spent is greater than 50% in coordination of care (as documented) at patient's floor/unit and/or counseling patient: 40 minutes Greater than 35 minutes
[2018-01-02] MEDS: Gabapentin 400 MG CAPSULE PO SCH ×2 (03:11→09:18)
[2018-01-02 04:41] LABS: Mean Platelet Volume 10.8 fL (9.4-12.4)
[2018-01-02 04:44] LABS: Basophils % 0.5 %; Hematocrit 33.1 % (37.5-50.1); Immature Granulocytes % 0.5 % (0-4); Immature Platelets 6.9 % (1.1-6.1); Lymphocytes # 1.8 K/mcL (0.6-4.6); Lymphocytes % 32.1 %; Mean Corpuscular HGB Conc 33.2 g/dL (31.6-35.5); Mean Corpuscular Hemoglobin 30.8 pg (28.0-33.3); Mean Corpuscular Volume 92.7 fL (83.0-100.0); Monocytes # 0.2 K/mcL (0.0-1.3); Neutrophils # 3.5 K/mcL (1.6-8.9); Platelet Count 148 K/mcL (140-400); Red Blood Count 3.57 M/mcL (4.19-5.50); Red Cell Distribution Width 13.4 % (11.5-14.5); Segmented Neutrophils % 62.9 %
[2018-01-02 05:06] LABS: Platelet Estimate Normal (Normal); Reactive Lymphocytes Present (Not Present)
[2018-01-02 05:25] LABS: BUN/Creatinine Ratio 17 (6-26); Blood Urea Nitrogen 11 mg/dL (8-23); Calcium 8.7 mg/dL (8.6-10.3); Carbon Dioxide 24 mEq/L (23-29); Chloride 102 mEq/L (98-107); Glucose 212 mg/dL (70-105); Magnesium 1.7 mg/dL (1.6-2.6); Osmolality,Calculated 286 (280-300); Potassium 4.3 mEq/L (3.5-5.1); Sodium 135 mEq/L (136-145); eGFR For African Americans > 60 (> 60); eGFR For Non-African Americans > 60 (> 60)
[2018-01-02] MEDS ORDERED: *HR* Heparin 5,000 UNIT/ML VIAL SQ SCH (06:00)
[2018-01-02 07:33] VITALS: BP 116/58
[2018-01-02] MEDS ORDERED: Azithromycin 250 MG TABLET PO SCH (09:00)
[2018-01-02] MEDS: Insulin LISPRO 300 UNITS/3 ML VIAL SQ SCH ×2 (09:19→13:29)
[2018-01-02] MEDS: 0.9 % Sodium Chloride 1,000 ML IVC SCH (09:27)
--- NOTE | 2018-01-02 13:40 | Discharge Summary ---
- NOTES TO OUTPATIENT PROVIDER Notes to Outpatient Provider: Follow up with PCP in 2-3 days after discharge. Orders not resulted at time of discharge: Pending orders 01/01/18 23:04 Venous Doppler [EV venous imaging LE BI] Routine 01/02/18 04:00 Respiratory Infection Panel [MOLMIC] AM 0400 01/02/18 06:00 ECG 12 lead ECG [ECG] AM 0600 Date of Encounter: 01/02/18 Time of Encounter: 12:37 - Discharge Diagnosis (1) Fever Priority: Primary Status: Resolved Qualifiers: Fever type: unspecified Qualified Code(s): R50.9 - Fever, unspecified (2) Acute respiratory failure with hypoxemia Priority: Secondary Status: Resolved (3) URI (upper respiratory infection) Priority: Secondary Status: Acute Qualifiers: URI type: unspecified viral URI Qualified Code(s): J06.9 - Acute upper respiratory infection, unspecified (4) Bronchitis Priority: Secondary Status: Acute (5) Acute pharyngitis Priority: Secondary Status: Acute Qualifiers: Pharyngitis/tonsillitis etiology: unspecified etiology Qualified Code(s): J02.9 - Acute pharyngitis, unspecified (6) Elevated d-dimer Priority: Secondary Status: Acute (7) Abnormal EKG Priority: Secondary Status: Acute (8) Diabetes Priority: Secondary Status: Chronic Qualifiers: Diabetes mellitus type: type 2 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 Lopez is a 62 year old male admitted for fever and acute respiratory failure with hypoxemia. Patient was admitted for observation to general medical floor with telemetry. His home azithromycin was continued for possible bronchitis/pharyngitis/URI. He had elevated d-dimer, so CTA chest and BLE venous dopplers were ordered. CTA was negative for pulmonary embolism. BLE venous dopplers were negative for DVT. He had EKG with LBBB, so cardiac enzymes were trended. Troponin was WNL x 3. He did not have any chest pain. Patient had no fever after admission. He states today that he is "so much better." He still has some sore throat. Strep throat and influenza tests were negative. His azithromycin was changed to doxycycline today because of history of tick bites. Doxycycline would cover URI (if bacterial) and lyme disease. He will be discharged home with 10 day course of PO doxycycline. He will follow up with PCP in 2-3 days after discharge. Patient has met maximum benefit of this hospitalization and will be discharged home in stable condition. Discharge discussed with: patient, family, nurse, other (Pharmacist) - Time Spent with Patient Total time spent providing and/or coordinating discharge services: Less than 30 minutes - Discharge Medications Prescriptions: Albuterol Sulfate [Albuterol Inhaler] 2 puff IH Q4HR PRN #1 hfa.aer.ad PRN Reason: Wheezing GuaiFENesin/Dextromethorphan [Robitussin/Dm] 10 ml PO Q6HR PRN #500 ml PRN Reason: Cough Benzocaine/Menthol Janeth [Cepacol Sore Throat Lozenge] 1 each MM Q2H PRN #30 lozenge PRN Reason: Sore Throat Cyclobenzaprine [Flexeril] 10 mg PO TID #15 tablet Doxycycline 100 mg PO BID 10 Days #20 capsule Home Medications: Atorvastatin Calcium [Lipitor] 80 mg PO HS 01/01/18 [History] Gabapentin [Neurontin] 1,200 mg PO TID 01/01/18 [History] Glimepiride [Amaryl] 4 mg PO DAILY 01/01/18 [History] Losartan [Cozaar] 25 mg PO DAILY 01/01/18 [History] Metformin HCl [Glucophage] 1,000 mg PO BID 01/01/18 [History] Albuterol Sulfate [Albuterol Inhaler] 2 puff IH Q4HR PRN #1 hfa.aer.ad 01/02/18 [Rx] Benzocaine/Menthol Janeth [Cepacol Sore Throat Lozenge] 1 each MM Q2H PRN #30 lozenge 01/02/18 [Rx] Cyclobenzaprine [Flexeril] 10 mg PO TID #15 tablet 01/02/18 [Rx] Doxycycline 100 mg PO BID 10 Days #20 capsule 01/02/18 [Rx] GuaiFENesin/Dextromethorphan [Robitussin/Dm] 10 ml PO Q6HR PRN #500 ml 01/02/18 [Rx] Allergies/Adverse Reactions: 3 Allergy/AdvReac Type Severity Reaction Status Date / Time No Known Allergies Allergy Verified 01/01/18 21:49 Date of admission: 01/01/18 22:08 Primary care physician: Nilo Schultz Discharging clinician: Kurtis Saldivar Anticipated date of discharge: 01/02/18 - Constitutional Vitals: Temp Pulse Resp BP Pulse Ox 97.8 F 70 20 116/58 92 01/02/18 07:23 01/02/18 07:23 01/02/18 07:23 01/02/18 07:23 01/02/18 07:23 General appearance: Present: cooperative, A&O X 3, pleasant, no acute distress, answers questions appropriately - Respiratory Respiratory exam: Present: CTAB. Absent: accessory muscle use, rales, rhonchi, wheezes Additional comments: Normal WOB - Cardiovascular Cardiovascular exam: Present: RRR, +S1, +S2. Absent: diastolic murmur, gallop, rubs, systolic murmur Additional comments: No BLE edema - GI/Abdominal GI/Abdominal exam: Present: normal bowel sounds, soft. Absent: distended, hepatomegaly, mass, splenomegaly, tenderness - Psychiatric Psychiatric exam: Present: normal affect, normal mood. Absent: agitated, anxious, depressed - Skin Skin exam: Present: dry, intact, warm. Absent: cyanosis, rash - Patient Status Disposition: Home, Self-Care Condition: Good Functional capacity at discharge: independent ambulation Overall status at discharge: patient is progressing back to baseline - Discharge Instructions Follow Up With: Flavia Escalona CLOTHING SUPERVISOR [Primary Care Provider] - Additional Instructions: Follow up with PCP in 2-3 days after discharge. - Diet and Activity Activity: resume usual activities as tolerated Diet: diabetic diet
[2018-01-02] MEDS ORDERED: Gabapentin 400 MG CAPSULE PO SCH (15:00)
[2018-01-02] MEDS ORDERED: Doxycycline 100 MG CAPSULE PO SCH (21:00)
[2018-01-02] MEDS ORDERED: Levofloxacin 500 MG/100 ML 500 MG/100 ML BAG IVPB SCH (21:00)
[2018-01-02] MEDS ORDERED: Insulin LISPRO 300 UNITS/3 ML VIAL SQ SCH (21:00)
--- NOTE | 2018-01-03 05:23 | Electrocardiograph Report ---
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
== END 2018-01-02 14:58 | disposition home or self-care (01) ==
LOC: EMEROO 16:37 → 2ANU 16:37
PROVIDERS: ADMIT Internal Medicine; ATTEND Internal Medicine